=== PATIENT | female | born 1980 | race African-American/Black ===

== ENCOUNTER 2019-08-03 07:01 | Emergency (ER) | payer OTHER ==
[2019-08-03 07:19] VITALS: BMI 34.0
[2019-08-03] MEDS ORDERED: ONDANSETRON 4 MG/2 ML VIAL IVPUSH ONE (08:52)
[2019-08-03] MEDS ORDERED: SODIUM CHLORIDE 1,000 ML IV STA (08:52)
[2019-08-03] MEDS ORDERED: ONDANSETRON 4 MG/2 ML VIAL ONE (09:22)
--- NOTE | 2019-08-03 09:40 | PDOC ---
History of Present Illness - General Chief Complaint: Pain Stated Complaint: STOMACH PAIN Time Seen by Provider: 08/03/19 07:53 - History of Present Illness Initial Comments: 08/03/19 09:29 This is a 38 year old female with no significant PMH. She now comes to the ER with complaints of crampy abdominal pain for the past 6 days, with 6 episodes of diarrhea daily, and one episode of vomiting overnight. She noticed blood in her stool at 2AM this morning, described as bright red streaks on the toilet paper after she wiped, as well as streaks in the commode. An hour later, she had an episode of vomiting with streaks of blood. The diffuse abdominal pain began gradually 6 days ago, ranges between 5-8/10 in intensity, described as crampy and stabbing in quality, intermittent in nature, non-radiating, partially alleviated by bowel movements, not aggravated by eating. She has had nausea and diarrhea all week, with associated SOB, but no fevers, chills, headaches, dizziness, chest pain, palpitations, cough, dysuria, hematuria, or polyuria. She denies any new medications, recent illnesses, recent travel, or sick contacts. She has had crampy abdominal pain intermittently since she was a child , but denies any bloody stools or vomiting in the past. She has never had an endoscopy or colonoscopy, has had no GI related hospital admissions, and no recent surgery. She does not use contraception, and has noticed no changes in her menstrual cycles. Past History - Past Medical History Allergies/Adverse Reactions: Allergies Allergy/AdvReac Type Severity Reaction Status Date / Time No Known Allergies Allergy Verified 08/03/19 07:19 Home Medications: Ambulatory Orders Ciprofloxacin [Cipro -] 500 mg PO Q12H 7 Days #14 tablet 08/03/19 Ondansetron HCl [Zofran] 4 mg PO TID PRN #10 tablet 08/03/19 metroNIDAZOLE [Flagyl -] 500 mg PO TID 7 Days #21 tablet 08/03/19 COPD: No - Psycho Social/Smoking Cessation Hx Smoking History: Never smoked Review of Systems - Review of Systems Comments:: 08/03/19 09:49 General: No fevers, chills, weakness EQUIPMENT COORDINATOR: No headaches, dizziness, visual changes, motor weakness Resp: No SOB, cough, CVS: No chest pain, palpitations, light headedness GI: Nausea, vomiting, diarrhea, abdominal pain, no constipation GOYO: No dysuria, hematuria, polyuria *Physical Exam - Vital Signs Last Vital Signs Temp Pulse Resp BP Pulse Ox 98.4 F 77 18 128/92 98 08/03/19 07:14 08/03/19 07:14 08/03/19 07:14 08/03/19 07:14 08/03/19 07:14 - Physical Exam Comments: 08/03/19 09:52 General: AOx3, responsive, cooperative Oropharynx: Moist oral mucosa, no lesions noted Eyes: Normal sclera, GALINA, EOM intact Lungs: B/L Clear Heart: Regular rate, regular rhythm, no murmurs rubs or gallops appreciated Abdomen: Soft, suprapubic and RLQ tenderness, non-distended, normoactive bowel sounds, no rebound tenderness Carroll's negative, on digital rectal exam no stool in vault, no blood noted on glove, no tears, normal tone Extremities: No edema, no calf tenderness, warm, well perfused Neuro: Motor 4/5 upper and lower extremities B/L, sensations intact B/L, CN II- XII intact, no tremors in hands, arms, legs ED Treatment Course - LABORATORY CBC & Chemistry Diagram: 08/03/19 09:30 08/03/19 09:30 - ADDITIONAL ORDERS Additional order review: Laboratory Results 08/03/19 08:30 Stool Occult Blood Negative - RADIOLOGY Radiology Studies Ordered: Category Date Time Status ABDOMEN & PELVIS CT WITH CONTR [CT] Stat CT Scan 08/03/19 08:50 Ordered Medical Decision Making - Medical Decision Making 08/03/19 09:59 Bloody diarrhea as well as bloody vomiting is concerning, considering gastroenteritis vs malabsorption disease - CBC/CMP/PTINR - Lipase - UA/UCx - FOBT negative - Stool culture - CT AP with contrast - N/S 1000 bolus - Zofran 4mg 08/03/19 11:04 - Serum negative - Labs reviewed, normal WBC, LFTs, and RFTs - Taken for CT AP 08/03/19 12:15 - Protonix 40mg IV, Mylanta 30mg PO 08/03/19 13:03 - CT AP shows evidence of colitis from level of cecum to descending colon - Will perform PO trial - D/C on Cipro 500 PO BID and Flagyl 500 PO for 7 days and Zofran 4mg PRN TID 08/03/19 13:54 - Patient had a few crackers, reports no nausea or cramping - Will D/C Discharge - Discharge Information Problems reviewed: Yes Clinical Impression/Diagnosis: Colitis Condition: Guarded - Admission No - Additional Discharge Information Prescriptions: Ciprofloxacin [Cipro -] 500 mg PO Q12H 7 Days #14 tablet metroNIDAZOLE [Flagyl -] 500 mg PO TID 7 Days #21 tablet Ondansetron HCl [Zofran] 4 mg PO TID PRN #10 tablet PRN Reason: Nausea And/Or Vomiting - Follow up/Referral Referrals: Arturo Mon MD [Primary Care Provider] - Agustin Jiang DO [Staff Physician] - - Patient Discharge Instructions Additional Instructions: You came to the ER with complaints of abdominal pain along with bloody diarrhea and vomiting. We did blood tests, as well as a scan of your abdomen (CT Scan). Your blood tests were normal, and the CT scan showed evidence of inflammation in your gut, which is likely causing your symptoms. You were fluids, antibiotics , and medicine for your nausea and pain. You are now being discharged Medications: - Please take Ciprofloxacin 500mg by mouth every 12 hours for the next 7 days. - Please take Metronidazole 500mg by ,mouth every 8 hours for the next 7 days. - Please take Ondansetron 4mg by mouth if you feel any nausea, no more 3 times per day. Follow up: - Please make an appointment to see your primary care physician Dr. Mon within 1 week. - Please make an appointment with our filter press supervisor, Dr. Jiang, within 1 week. Additional Information: - Please return to the ER if your symptoms do not improve, or worsen. - Post Discharge Activity
[2019-08-03 10:12] LABS: BASO % 0.6 % (0-2.0); EOS % 0.7 % (0-4.5); HEMATOCRIT 36.6 % (32.4-45.2); HEMOGLOBIN 12.8 GM/dL (10.7-15.3); LYMPH % 24.2 % (8-40); MCH 30.6 pg (25.7-33.7); MCHC 34.9 g/dl (32.0-36.0); MEAN CELL VOLUME 87.6 fl (80-96); MEAN PLT VOLUME 10.4 fl (7.5-11.1); MONO % 8.9 % (3.8-10.2); NEUT % 65.6 % (42.8-82.8); PLATELET COUNT 193 K/MM3 (134-434); RBC 4.17 M/mm3 (3.60-5.2); RDW 13.1 % (11.6-15.6); WHITE BLOOD COUNT 7.1 K/mm3 (4.0-10.0)
[2019-08-03 10:28] LABS: ALBUMIN 3.8 g/dl (3.4-5.0); BILIRUBIN,TOTAL 0.6 mg/dL (0.2-1); BLOOD UREA NITROGEN 10.1 mg/dL (7-18); CREATININE 0.6 mg/dL (0.55-1.3); POTASSIUM 3.6 mmol/L (3.5-5.1); TOT PROT 7.7 g/dl (6.4-8.2)
[2019-08-03 10:31] LABS: INR 1.04 (0.83-1.09); PROTHROMBIN TIME (PATIENT) 12.3 SEC (9.7-13.0)
[2019-08-03 11:15] LABS: EPI CELLS 9.5 /HPF (0-5/HPF); HYALINE CASTS 7 /lpf (0-8); PH,URINE 5.5 (5.0-8.0); URINE APPEARANCE CLOUDY; URINE BACTERIA 171.9 /hpf (NEGATIVE); URINE BILIRUBIN NEGATIVE (NEGATIVE); URINE COLOR YELLOW; URINE GLUCOSE (UA) NEGATIVE (NEGATIVE); URINE KETONE 1+ (NEGATIVE); URINE LEUK ESTERASE NEGATIVE (NEGATIVE); URINE NITRITE NEGATIVE (NEGATIVE); URINE PROTEIN 1+ (NEGATIVE); URINE RBC 2 /hpf (0-4); URINE UROBILINOGEN 0.2 mg/dL (0.2-1.0); URINE WBC 4 /hpf (0-5)
[2019-08-03] MEDS ORDERED: PANTOPRAZOLE SODIUM 40 MG VIAL IVPUSH ONE (11:17)
[2019-08-03] MEDS ORDERED: MAG HYDROX/AL HYDROX/SIMETH -MYLANTA- ORAL SUSPENSION PO ONE (11:17)
[2019-08-03] MEDS ORDERED: ACETAMINOPHEN 1000 MG/100 ML VIAL (NON FORMULARY) IVPB ONE (11:41)
[2019-08-03] MEDS ORDERED: MAG HYDROX/AL HYDROX/SIMETH 30 ML UNIT-DOSE CUP ONE (11:53)
[2019-08-03] MEDS ORDERED: ACETAMINOPHEN INJECTION 100 ML IVPB ONE (11:53)
[2019-08-03] MEDS ORDERED: PANTOPRAZOLE SODIUM 40 MG/100 ML BAG IVPB ONE (11:53)
--- NOTE | 2019-08-03 12:43 | PDOC ---
Attending Attestation - Resident Resident Name: Jose Enrique Canada - ED Attending Attestation I have performed the following: I have examined & evaluated the patient, The case was reviewed & discussed with the resident, I agree w/resident's findings & plan, Exceptions are as noted - HPI HPI: 08/03/19 12:41 Edges looks like smudgy 30-year-old female no past medical history here today complaining of nausea vomiting diarrhea. Patient states she initially had several episodes of loose watery stool she then developed some blood streaks when wiping in her stool. She also had a few episodes of emesis early this a.m. and then one recurrent episode after drinking water today. Denies any fevers or chills did have crampy abdominal pain with stools no recent travel no recent antibiotic use no known family history of ulcerative colitis or Crohn's no known sick contacts members with the same illness - Physicial Exam PE: 08/03/19 12:42 No acute distress lungs are clear bilaterally heart is regular without murmurs rubs or gallops abdomen is soft there is mild right lower quadrant tenderness palpation no rebound no guarding no CVA tenderness extremities are warm well perfused skin is warm and dry no rash patient is awake alert and oriented - Medical Decision Making 08/03/19 12:42 30-year-old female with nausea vomiting diarrhea did have one episode of hematemesis and some blood-streaked stool. Differential includes viral etiology bacterial colitis gastroenteritis diverticulitis other infectious diarrhea plan CT abdomen pelvis due to tenderness on exam no risk factors for ischemic colitis plan CBC CMP CT IV fluids and Zofran. Patient overall is feeling improved CT abdomen pelvis shows colitis to the fact that she had blood in her stool we will treat with Cipro and Flagyl trial p.o. prior to discharge home and follow-up with GI as needed
[2019-08-03] MEDS ORDERED: metroNIDAZOLE 250 MG TABLET PO ONE (13:02)
[2019-08-03] MEDS ORDERED: CIPROFLOXACIN 500 MG TABLET (RESTRICTED TO ID) PO ONE (13:02)
[2019-08-03 14:03] VITALS: BP 130/70; PULSE 68; TEMP 98.6
== END 2019-08-03 14:10 | disposition home or self-care (01) ==
LOC: JER 07:01
PROC: 3E0337Z Introduction of Electrolytic and Water Balance Substance into Peripheral Vein, Percutaneous Approach (ICD-10-PCS; principal; 2019-08-03)
PROC: 3E033NZ Introduction of Analgesics, Hypnotics, Sedatives into Peripheral Vein, Percutaneous Approach (ICD-10-PCS; 2019-08-03)
PROC: 3E033GC Introduction of Other Therapeutic Substance into Peripheral Vein, Percutaneous Approach (ICD-10-PCS; 2019-08-03)
PROC: 3E033GC Introduction of Other Therapeutic Substance into Peripheral Vein, Percutaneous Approach (ICD-10-PCS; 2019-08-03)
DX: K52.9 Noninfective gastroenteritis and colitis, unspecified (principal)
CPT/HCPCS: 36415; 74177-TC; 80053; 81003; 82272; 83690; 84703; 85025; 85610; 87086; 96361; 96374; 96375; 99283-25; J0131; J7030

== ENCOUNTER 2019-10-09 12:34 | Emergency (ER) | payer OTHER ==
[2019-10-09 12:43] VITALS: BP 130/87; PULSE 64; TEMP 98; BMI 32.1
[2019-10-09] MEDS ORDERED: ACETAMINOPHEN 325 MG TABLET (FP) PO ONE (13:15)
--- NOTE | 2019-10-09 13:18 | PDOC ---
History of Present Illness - General Chief Complaint: Injury Stated Complaint: R/O BROKEN LT ANKLE Time Seen by Provider: 10/09/19 13:10 History Source: Patient Exam Limitations: No Limitations - History of Present Illness Initial Comments: 10/09/19 13:20 Chief complaint: Ankle injury Patient is a 38-year-old female with no significant medical history who states she was leaving her house, slipped on a wet floor, injuring her left ankle. Painful to walk. No other injuries or complaints GENERAL/CONSTITUTIONAL: No fever, weakness. dizziness HEAD, EYES, EARS, NOSE AND THROAT: No change in vision. No ear pain or discharge. No sore throat. CARDIOVASCULAR: No chest pain RESPIRATORY: No shortness of breath or cough GASTROINTESTINAL: No pain, nausea, vomiting, diarrhea or constipation GENITOURINARY: No dysuria MUSCULOSKELETAL: No neck or back pain, + left ankle SKIN: No rash NEUROLOGIC: No headache, vertigo, loss of consciousness, or loss of sensation. GENERAL: The patient is awake, alert, and fully oriented, in no acute distress. HEAD: Normal with no signs of trauma. EYES: Pupils equal, round and reactive to light, sclera anicteric, conjunctiva clear. ENT: pharynx: no erythema, no exudate, uvula midline NECK: supple CHEST: clear, nontender, rr ABD: soft, nontender BACK: no tenderness or signs of injury EXTREMITIES: Left ankle with mild lateral swelling and tenderness, no deformity , some swelling at the area of the fifth metatarsal, no proximal tenderness or swelling, neurovascular intact. Rest of extremities, normal range of motion, no edema. NEUROLOGICAL: Normal speech, SKIN: Warm, Dry Past History - Past Medical History Allergies/Adverse Reactions: Allergies Allergy/AdvReac Type Severity Reaction Status Date / Time No Known Allergies Allergy Verified 10/09/19 12:43 Home Medications: Ambulatory Orders Ciprofloxacin [Cipro -] 500 mg PO Q12H 7 Days #14 tablet 08/03/19 Ondansetron HCl [Zofran] 4 mg PO TID PRN #10 tablet 08/03/19 metroNIDAZOLE [Flagyl -] 500 mg PO TID 7 Days #21 tablet 08/03/19 COPD: No - Psycho Social/Smoking Cessation Hx Smoking History: Never smoked *Physical Exam - Vital Signs Last Vital Signs Temp Pulse Resp BP Pulse Ox 98 F 64 18 130/87 100 10/09/19 12:41 10/09/19 12:41 10/09/19 12:41 10/09/19 12:41 10/09/19 12:41 Procedures - Splinting Splint Location: Left: Ankle Pre-Proc Neuro Vasc Exam: normal Hand-Made Type: orthoglass Splint Type: Yes: Posterior (with sugar tong) Post-Proc Neuro Vasc Exam: normal Richard Bandage: yes, 4", 6" Sling: No Complications: No Progress: 10/09/19 15:18 crutches Medical Decision Making - Medical Decision Making 10/09/19 15:19 Healthy 38-year-old female who slipped on wet floor, injuring left ankle, x-ray shows distal fibula fracture, patient will be splinted, put on crutches, follow- up with orthopedics for definitive care. Discussed issues, findings, results, applicable medications and treatments and follow-up. All these were understood and all questions were answered Discharge - Discharge Information Problems reviewed: Yes Clinical Impression/Diagnosis: Fibula fracture Qualifiers: Encounter type: initial encounter Fibula location: distal Fracture type: closed Fracture morphology: unspecified fracture morphology Laterality: left Qualified Code(s): S82.832A - Other fracture of upper and lower end of left fibula, initial encounter for closed fracture Condition: Stable Disposition: HOME - Admission No - Follow up/Referral Referrals: Arturo Mon MD [Primary Care Provider] - David Reeves MD [Staff Physician] - - Patient Discharge Instructions Patient Printed Discharge Instructions: Fibula Shaft Fracture Additional Instructions: Elevate, wear splint You can apply ice for 20 minutes every 2 hours for the next 2 days Motrin 600 mg every 6 hours for pain. Call the orthopedist tomorrow - Post Discharge Activity Work/Back to School Note: Back to Work
[2019-10-09] MEDS ORDERED: ACETAMINOPHEN 325 MG TABLET (FP) ONE (13:55)
== END 2019-10-09 14:34 | disposition home or self-care (01) ==
LOC: JERFT 12:34
CPT/HCPCS: 73610-TC-LT-FY; 73630-TC-LT; 99283-25

== ENCOUNTER 2019-10-23 13:20 | Day surgery (SDC) | payer OTHER ==
[2019-10-21 11:08] VITALS: BMI 32.1
--- NOTE | 2019-10-23 07:37 | OP ---
Operative Note - Note: Operative Date: 10/23/19 Pre-Operative Diagnosis: Left ankle fracture Operation: Left ankle ORIF Post-Operative Diagnosis: Same as Pre-op Surgeon: Phoeinx Krause [employer] Science Teacher: Tiffany Moya Anesthesiologist/SUPERVISOR SPECIAL EDUCATION: Kenneth Ruiz Anesthesia: General, Spinal Operative Report Dictated: Yes
[2019-10-23] MEDS ORDERED: ROPIVACAINE HCL 0.5% 30ML VIAL ONE (13:53)
[2019-10-23] MEDS ORDERED: MIDAZOLAM HCL 2 MG/2 ML SINGLE DOSE VIAL ONE ×2 (13:53→14:04)
[2019-10-23] MEDS ORDERED: PROPOFOL 20 ML ONE ×7 (14:04→15:51)
[2019-10-23] MEDS ORDERED: LIDOCAINE HCL/PF 2% SDV 5ML VIAL ONE (14:04)
[2019-10-23] MEDS ORDERED: SCOPOLAMINE HYDROBROMIDE 1 PATCH PATCH.TD72 ONE (14:16)
[2019-10-23] MEDS ORDERED: SUCCINYLCHOLINE CHLORIDE 200 MG/10 ML SYRINGE ONE (14:47)
[2019-10-23] MEDS ORDERED: ceFAZolin SODIUM 1 GM VIAL ONE (14:51)
--- NOTE | 2019-10-23 16:38 | OP ---
DATE OF OPERATION: 10/23/2019 PREOPERATIVE DIAGNOSIS: Left unstable ankle fracture. POSTOPERATIVE DIAGNOSIS: Left unstable ankle fracture. PROCEDURE: Left ankle open reduction, internal fixation. SURGEON: Phoenix Vivas MD TABLE MAKER: Anuradha Moya, physician store administrative assistant, whose skillful assistance was necessary for the safe and timely performance of this procedure. Ms. Moya was able to provide limb positioning, traction, assist in fracture reduction, as well as the insertion of orthopedic fixation hardware. ANESTHESIA: Regional plus sedation. POSTOPERATIVE CONDITION: Stable. COMPLICATIONS: None. IMPLANTS: Arthrex distal fibula plate, titanium, with 2.7-mm distal locking and 3.5-mm cortical screws. INDICATIONS: This is a pleasant woman who suffered a trip and fall. She was found to have a displaced ankle fracture. There was widening of the medial clear space indicative of instability and therefore was indicated for operative management. Operative risks were reviewed in detail including bleeding, infection, neurovascular injury, need for further surgery, postoperative pain and stiffness, nonunion, malunion, hardware failure, such as heart attack, stroke, DVT, PE, and . I addressed the use of perioperative antibiotics and DVT prophylaxis. I addressed all the patient's questions and concerns. She voiced understanding and elected to proceed. DESCRIPTION OF PROCEDURE: The patient was brought to the operating room after administration of regional block in the preoperative holding area. She was then provided sedation on the operating room table. Left lower extremity was prepped and draped in the usual sterile fashion. A preoperative dose of antibiotics was given, and the usual timeout procedure was performed. The fibula was now marked out. An incision was marked out over the fracture site. This was then carried down through skin to subcutaneous tissue. Blunt spreading was used to expose the fascial . This was then split in line with the fibula to expose the fracture site. The fracture site was then debrided of any soft callus utilizing a curet. It was then irrigated. The fracture reduction clamp was now placed across the fracture, bringing it into anatomic alignment. A lag screw was now placed in the anterior to posterior direction in standard fashion, securing the fracture. The clamp was now removed and the fracture was stable. A neutralization plate was now chosen, then applied to the side of the fibula. This was fixed first proximally with nonlocking screws and then distally with locking screws. The entire construct was now examined both visually and fluoroscopically. Both fracture reduction hardware placements were satisfactory. The ankle was now passed through an external rotation stress test. The ankle was seen to be stable. At this point the wound was copiously irrigated. The deep tissue was approximated using 0 Vicryl. The subcutaneous tissue was approximating using 2-0 Vicryl. Skin was closed using running 3-0 nylon. Sterile dressings were placed. The patient was extubated, transferred to recovery room in stable condition. PHOENIX VIVAS M.D. [id number]
[2019-10-23] MEDS ORDERED: ONDANSETRON 4 MG/2 ML VIAL IVPUSH PRN (16:49)
[2019-10-23] MEDS ORDERED: oxyCODONE HCL 5 MG TABLET PO PRN ×2 (16:49)
[2019-10-23] MEDS ORDERED: LACTATED RINGERS SOLUTION 1,000 ML IV SCH (17:00)
[2019-10-23 18:33] VITALS: BP 110/73; PULSE 76; TEMP 97.9
== END 2019-10-23 18:33 | disposition home or self-care (01) ==
LOC: FASU 13:20
PROVIDERS: ATTEND Orthopaedic Surgery Sports Medicine
PROC: 0QSK04Z Reposition Left Fibula with Internal Fixation Device, Open Approach (ICD-10-PCS; principal; 2019-10-23 15:17)
DX: S82.62XA Displaced fracture of lateral malleolus of left fibula, initial encounter for closed fracture (principal); W01.0XXA Fall on same level from slipping, tripping and stumbling without subsequent striking against object, initial encounter; Y93.9 Activity, unspecified; Y92.9 Unspecified place or not applicable
CPT/HCPCS: 27792; C1713; 73610-TC-LT-FY; 84703; 94760